=== PATIENT | female | born 1965 | race Caucasian/White ===

== ENCOUNTER 2022-07-22 15:27 | Outpatient (CLI) | payer OTHER | END 2022-07-22 15:28 | disposition home or self-care (01) | LOC: CSHRAD 15:27 | PROVIDERS: ATTEND Student in an Organized Health Care Education/Training Program | DX: M54.50 Low back pain, unspecified (principal); M25.562 Pain in left knee; M25.571 Pain in right ankle and joints of right foot; M47.816 Spondylosis without myelopathy or radiculopathy, lumbar region; M17.12 Unilateral primary osteoarthritis, left knee; Z98.890 Other specified postprocedural states | CPT/HCPCS: 72100 ==

== ENCOUNTER 2025-02-12 11:08 | Outpatient (CLI) | payer OTHER | END 2025-02-12 11:09 | disposition home or self-care (01) | LOC: CSHLAB 11:08 | PROVIDERS: ATTEND Obstetrics & Gynecology | DX: Z01.818 Encounter for other preprocedural examination (principal); D25.1 Intramural leiomyoma of uterus | CPT/HCPCS: 93005; 93010 ==